=== PATIENT | female | born 1940 | race Caucasian/White ===

== ENCOUNTER 2016-02-25 09:33 | Day surgery (SDC) | payer OTHER ==
[2016-02-25 10:19] VITALS: BMI 24.8
[2016-02-25] MEDS ORDERED: LIDOCAINE HCL/PF 1% SDV 5ML VIAL ONE (10:43)
[2016-02-25] MEDS ORDERED: PROPOFOL 20 ML ONE ×2 (10:43)
[2016-02-25 11:28] VITALS: TEMP 98.5
[2016-02-25 12:16] VITALS: BP 119/65; PULSE 56
== END 2016-02-25 12:38 | disposition home or self-care (01) ==
LOC: JASU-ENDO 09:33
PROVIDERS: ATTEND Internal Medicine Gastroenterology
PROC: 0DJD8ZZ Inspection of Lower Intestinal Tract, Via Natural or Artificial Opening Endoscopic (ICD-10-PCS; principal; 2016-02-25 10:00)
DX: Z12.11 Encounter for screening for malignant neoplasm of colon (principal); Z80.0 Family history of malignant neoplasm of digestive organs; K57.30 Diverticulosis of large intestine without perforation or abscess without bleeding

== ENCOUNTER 2021-08-19 10:37 | Emergency (ER) | payer OTHER ==
[2021-08-19 10:43] VITALS: BP 176/62; PULSE 69; TEMP 98.4; BMI 25.2
[2021-08-19] MEDS ORDERED: LIDOCAINE 5% TOPICAL PATCH TP ONE (11:19)
[2021-08-19] MEDS ORDERED: KETOROLAC TROMETHAMINE 15 MG/ML VIAL IM ONE (11:20)
[2021-08-19] MEDS ORDERED: LIDOCAINE PATCH REMOVAL MC SCH (23:00)
== END 2021-08-19 11:30 | disposition home or self-care (01) ==
LOC: JER 10:37 → JERFT 10:37
PROC: 3E0233Z Introduction of Anti-inflammatory into Muscle, Percutaneous Approach (ICD-10-PCS; principal; 2021-08-19)
DX: M54.50 Low back pain, unspecified (principal)
CPT/HCPCS: 96372; 99284-25